=== PATIENT | female | born 2005 | race Caucasian/White ===

== ENCOUNTER 2024-06-28 18:21 | Emergency (ER) | payer MEDICAID, SELFPAY ==
[2024-06-28 18:27] VITALS: BP 136/97; PULSE 119; RESP 20; TEMP 37.2; O2SAT 98
[2024-06-28 19:46] LABS: Bilirubin Negative (Negative); Blood Trace-intact (Negative); Clarity Clear (Clear); Glucose Negative (Negative); Ketones Negative (Negative); Leukocyte Esterase Trace (Negative); Nitrite Negative (Negative); Specific Gravity >= 1.030 (1.005-1.025); Urobilinogen 0.2 mg/dL (Up to 0.2); pH 5.5 (5-8)
[2024-06-28 19:55] LABS: RBC 0-2 HPF (0-2); WBC 20-50 HPF (0-5)
[2024-06-28 19:56] LABS: Bacteria Few HPF (Negative); C & S Indicated? No/Sq. Contamination; Crystals Negative HPF (Negative); Epithelial Cells Many HPF (Negative); Mucus Trace (Negative)
--- NOTE | 2024-06-28 21:02 | NUR.NOTE ---
Nursing Note: Pt eloped after seeing the provider. RN went into room to do bloodwork and patient was not there. Eloped. Initially it was thought that the pt LWBS but this was incorrect. Then later eloped after being seen by provider.
--- NOTE | 2024-06-28 22:31 | W.ED.GENAD ---
Discharge Plan Discharge Details Chief Complaint: Urinary Primary Care Provider: Unknown,Unknown ED Provider: Carissa Miranda Home Meds and New Rx's Prescriptions: No Action No Known Home Meds HPI General Date/Time Provider Initiated Documentation: 06/28/24 19:54. HPI Narrative: The patient is a 19-year-old female with abdominal pain, dysuria, and urinary frequency for the past few months. She has a new sexual partner and does not use protection. She is not on oral contraceptives. Previously tested for STIs, she is concerned about a current STI. A home test was negative. Related Data Home Medications ?Medication ?Instructions ?Recorded ?Confirmed Unknown [No Known Home Meds] 06/28/24 06/28/24 Allergies Allergy/AdvReac Type Severity Reaction Status Date / Time No Known Allergies Allergy Unverified 06/28/24 18:26 General Stated Complaint: Urinary SAMM: 4 Exam Narrative Exam Narrative: General Appearance: Alert and oriented. Vital signs: Tachycardic. HEENT: Within normal limits. Respiratory: Within normal limits. Cardiovascular: Tachycardic. Gastrointestinal: No abdominal or flank tenderness. Skin: Warm and dry, no rash. Neurological: Normal. Other observations: Not in acute distress. Course Vital Signs Vital signs: Vital Signs Temperature 37.2 C 06/28/24 18:27 Pulse 119 H 06/28/24 18:27 Respiratory Rate 20 06/28/24 18:27 Blood Pressure 136/97 H 06/28/24 18:27 Pulse Oximetry 98 06/28/24 18:27 Temperature 37.2 C 06/28/24 18:27 Temperature Source Oral 06/28/24 18:27 Pulse 119 H 06/28/24 18:27 Respiratory Rate 20 06/28/24 18:27 Blood Pressure 136/97 H 06/28/24 18:27 Blood Pressure Position Sitting 06/28/24 18:27 Pulse Oximetry 98 06/28/24 18:27 Oxygen Delivery Method Room Air 06/28/24 18:27 Oxygen Flow Rate 0 06/28/24 18:27 Pain Level 0 06/28/24 18:27 Lab/Test Results Lab/Test Results: Laboratory Tests Range/Units 06/28/24 06/28/24 19:30 20:27 WBC Cancelled RBC Cancelled Hgb Cancelled Hct Cancelled MCV Cancelled MCH Cancelled MCHC Cancelled RDW Cancelled Plt Count Cancelled MPV Cancelled Immature Gran % Cancelled Neutrophils % Cancelled Band Neutrophils % Cancelled Lymphocytes % Cancelled Atypical Lymphs % Cancelled Monocytes % Cancelled Eosinophils % Cancelled Basophils % Cancelled Metamyelocytes % Cancelled Myelocytes % Cancelled Promyelocytes % Cancelled Other Cells % Cancelled Nucleated RBC % Cancelled Absolute Neutrophils Cancelled Absolute Lymphocytes Cancelled Absolute Monocytes Cancelled Absolute Eosinophils Cancelled Absolute Basophils Cancelled RBC Morphology Cancelled Polychromasia Cancelled Hypochromasia Cancelled Poikilocytosis Cancelled Basophilic Stippling Cancelled Anisocytosis Cancelled Microcytosis Cancelled Macrocytosis Cancelled Spherocytes Cancelled Tear Drop Cells Cancelled Ovalocytes Cancelled Stomatocytes Cancelled [place] Bodies Cancelled [place] Cells/Echinocytes Cancelled Acanthocytes (Spur) Cancelled Schistocytes Cancelled Sodium Cancelled Potassium Cancelled Chloride Cancelled Carbon Dioxide Cancelled Anion Gap Cancelled BUN Cancelled Creatinine Cancelled Est GFR (CKD-EPI 2020) Cancelled Glucose Cancelled Calcium Cancelled Total Bilirubin Cancelled AST Cancelled ALT Cancelled Alkaline Phosphatase Cancelled Total Protein Cancelled Albumin Cancelled Serum HCG, Qual Cancelled Urine Color (Yellow) Yellow Urine Clarity (Clear) Clear Urine pH (5-8) 5.5 Ur Specific [place] (1.005-1.025) >= 1.030 H Urine Protein (Neg-Trace) mg/dL >=300 H Urine Ketones (Negative) mg/dL Negative Urine Blood (Negative) Trace-intact H Urine Nitrite (Negative) Negative Urine Bilirubin (Negative) Negative Urine Urobilinogen (Up to 0.2) mg/dL 0.2 Ur Leukocyte Esterase (Negative) Trace H Urine RBC (0-2) HPF 0-2 Urine WBC (0-5) HPF 20-50 H Ur Epithelial Cells (Negative) HPF Many Urine Crystals (Negative) HPF Negative Urine Bacteria (Negative) HPF Few Urine Mucus (Negative) Trace Ur Culture Indicated? No/Sq. Contamination Urine Glucose (Negative) mg/dL Negative POC- Test(urine) Negative Medical Decision Making Urine test shows >300 protein. Initial Assessment: 19-year-old female with abdominal pain, dysuria, and urinary frequency over the past few months. New partner, no protection. Home test negative. Tachycardic but alert and oriented. No abdominal or flank tenderness. Not in acute distress. Differential Diagnosis: - Suspected STI: Considered due to new partner, lack of protection, and symptoms. Plan for repeat urinalysis, CBC, chemistry, and pelvic exam for STDs. ED Course: - Urine test shows >300 protein. - Recommended repeat urinalysis, CBC, chemistry, and pelvic exam for STDs. - Patient eloped before completing assessment. Final Assessment: Patient presented with symptoms suggestive of STI. Initial tests indicated protein in urine. Recommended further tests and pelvic exam, but patient eloped before completion. Clinical Impression: - Suspected STI MDM Components Evaluation: - Number of Differential Diagnoses or Management Options: Suspected STI - Amount and Complexity of Data Reviewed: Urinalysis - Risk of Complication and Morbidity or Mortality: Potential complications from untreated STI. Quality:SDOH Health Related Social Needs: No Data to Display [facility] Social History Smoking/Tobacco Use Status: Never Smoking risk assessment performed?: Yes Alcohol Intake: current Alcohol Intake frequency: a few times a month Alcohol type: beer Drug use: Never Substance use type: marijuana Housing: apartment Do you feel safe at home: Yes Do you feel safe in your relationship?: Yes
== END 2024-06-28 21:02 | disposition left against medical advice (07) ==
LOC: ER 19:52
PROVIDERS: Emergency Provider Physician Assistant
DX: Z53.29 Procedure and treatment not carried out because of patient's decision for other reasons (principal); N89.8 Other specified noninflammatory disorders of vagina
CPT/HCPCS: 80053; 99282; 81003; 81015; 84703; 85025

== ENCOUNTER 2024-08-06 13:56 | Emergency (ER) | payer MEDICAID, SELFPAY ==
[2024-08-06 13:57] VITALS: BP 105/71; PULSE 69; RESP 16; TEMP 36.7; O2SAT 99
[2024-08-06 13:59] VITALS: BP 105/71; PULSE 69; RESP 16; TEMP 36.7; O2SAT 99
[2024-08-06 14:11] VITALS: RESP 16
--- NOTE | 2024-08-06 14:15 | ED.GENADUL_ITS ---
Discharge Plan Disposition Patient Disposition: Home Condition: Stable Discharge Details Clinical Impression: URI (upper respiratory infection) Primary Care Provider: None,None ED Provider: Prashanth Harp Home Meds and New Rx's Prescriptions: No Action No Known Home Meds Discharge Instructions Instructions: Upper Respiratory Infection ED Additional Instructions: Start over the counter medications to help with your symptoms: Flonase, Claritin, Mucinex. Make sure you are drinking lots of water. Take Motrin and Tylenol as needed for any pain or fever. Follow-up with community connections to get established of the primary care You have been referred to women's wellness to follow-up with any ongoing pelvic pain issues and routine treatment. HPI General Date/Time Provider Initiated Documentation: 08/06/24 14:01 . Limitations to Documentation: no limitations . Information obtained by: patient . HPI Narrative: 19-year-old female without significant past medical history presents for evaluation of URI symptoms. She reports that for the last several days she has been having runny nose, frontal headache, ear fullness, cough and sore throat. She denies any fevers. She reports the symptoms have been going on for about 4 or 5 days. She is eating and drinking normally. No diarrhea. She has not having a productive cough. She reports that she does occasionally vape and smoke weed but does not have any prior history of asthma. Related Data Home Medications ?Medication ?Instructions ?Recorded ?Confirmed citalopram 10 mg tablet (Celexa) 10 mg PO DAILY 08/06/24 08/06/24 Allergies Allergy/AdvReac Type Severity Reaction Status Date / Time No Known Allergies Allergy Unverified 08/06/24 14:15 General Stated Complaint: GenMedical SAMM: 4 Exam Narrative Exam Narrative: Review of Systems: All systems reviewed & are unremarkable except as noted in HPI and below Well-developed, no acute distress Afebrile NCAT PERRL, normal conjunctiva Bilateral TM unremarkable Posterior oropharynx without tonsillar enlargement or exudate, no significant adenopathy of the neck RRR no murmur Unlabored respiratory effort clear bilaterally Nondistended abdomen soft nontender Course Vital Signs Vital signs: Vital Signs Temperature 36.7 C 08/06/24 13:57 Pulse 69 08/06/24 13:57 Respiratory Rate 16 08/06/24 13:57 Blood Pressure 105/71 08/06/24 13:57 Pulse Oximetry 99 08/06/24 13:57 Temperature 36.7 C 08/06/24 13:59 Temperature Source Oral 08/06/24 13:59 Pulse 69 08/06/24 13:59 Respiratory Rate 16 08/06/24 14:11 Respiratory Depth Normal 08/06/24 14:11 Respiratory Pattern Normal 08/06/24 14:11 Blood Pressure 105/71 08/06/24 13:59 Blood Pressure Position Sitting 08/06/24 13:59 Pulse Oximetry 99 08/06/24 13:59 Medical Decision Making Emergent evaluation of URI symptoms. The patient is well-appearing, afebrile and nontoxic. She has no clinical signs or symptoms concerning for pneumonia. I doubt bacterial sinus infection given the lack of sinus tenderness, fever and the duration of her symptoms. I do not feel that antibiotics are indicated. Given that she is not even having fever and her symptoms have been ongoing for several days, I no real need for COVID and flu testing. Patient does report that she was recently in the emergency department but eloped and she was wondering if maybe she could just go ahead and get that testing done while she was here today. However given that she is not having any additional symptoms of pelvic or abdominal pain I do not feel it would be appropriate or necessary to do a pelvic exam or blood work. She has been given information to follow-up with community connections to establish primary care and I have referred her to women[facility] to get ongoing routine care. Quality:SDOR Health Related Social Needs: No Data to Display PFSH All Active Problems (Updated 08/06/24 @ 14:11 by Prashanth Harp MD) URI (upper respiratory infection) (Acute) Social History Smoking/Tobacco Use Status: Current every day Tobacco Type: e-cigarettes Smoking risk assessment performed?: Yes Alcohol Intake: current Alcohol Intake frequency: a few times a month Alcohol type: beer Drug use: Never Substance use type: marijuana Housing: apartment Do you feel safe at home: Yes Do you feel safe in your relationship?: Yes
== END 2024-08-06 14:34 | disposition home or self-care (01) ==
PROVIDERS: Emergency Provider Emergency Medicine
DX: J06.9 Acute upper respiratory infection, unspecified (principal); F17.291 Nicotine dependence, other tobacco product, in remission
CPT/HCPCS: 99283; 99282

== ENCOUNTER 2024-08-27 14:18 | Outpatient (REF) | payer MEDICAID, SELFPAY ==
[2024-08-29 13:35] LABS: Chlamydia Result Negative (Negative); GC Result Negative (Negative)
== END 2024-08-27 14:19 | disposition home or self-care (01) ==
LOC: LBN 14:18
PROVIDERS: Visit Provider Nurse Practitioner Women's Health
DX: Z11.3 Encounter for screening for infections with a predominantly sexual mode of transmission (principal)
CPT/HCPCS: 87491; 87591

== ENCOUNTER 2024-08-28 05:32 | Outpatient (CLI) | payer MEDICAID, SELFPAY ==
--- NOTE | 2024-08-28 06:30 | DI.US_ITS ---
Exam(s) US PELVIS TRANSVAGINAL EXAM: US PELVIS TRANSVAGINAL CLINICAL HISTORY: L sided pelvic pain,r10.2 TECHNIQUE: Ultrasound of the pelvis was performed both transabdominal and transvaginal. COMPARISON: No exams were available for comparison FINDINGS: UTERUS: Nongravid and anteverted Measures 8.2 cm length x 4.2 cm AP x 5.1 cm wide. There are no uterine fibroids. Endometrial thickness measures 3.7 mm. There is no fluid in the endometrial canal. CERVIX: There are no obvious nabothian cysts. RIGHT OVARY: Measures 2.5 x 2.1 x 2.1 cm Small sub cm follicular cysts. LEFT OVARY: Measures 4.3 by 3.7 x 2.9 cm There is a 2.8 x 2.5 x 1.9 cm cyst in left ovary. Does not contain septum nor significant mural nodu les. CUL-DE-SAC: No free fluid evident. IMPRESSION: 1. Normal appearing uterus and age-appropriate endometrium. 2. There is a 2.8 by 2.5 x 1.9 cm benign-appearing simple cyst in the left ovary. No surrounding fl uid. Normal vascular flow demonstrated in the ovary. There are smaller sub cm follicular cyst in the opposite-right ovary. 3. No free fluid evident in the adnexal regions and cul-de-sac. DATA REPOSITORY:
== END 2024-08-28 05:52 ==
PROVIDERS: Visit Provider Nurse Practitioner Women's Health
DX: R10.2 Pelvic and perineal pain (principal)
CPT/HCPCS: 76830; 76856